=== PATIENT | female | born 1950 | race Caucasian/White ===

== ENCOUNTER 2020-06-12 10:58 | Outpatient (CLI) | payer MEDICARE ==
--- NOTE | 2020-06-12 11:11 | XRAY Report ---
PROCEDURE: Chest 2 View X-Ray INDICATIONS: CHEST WALL PAIN, ACUTE TECHNIQUE: 2 view(s) of the chest. COMPARISON: None. FINDINGS: Surgical changes and devices: Small surgical clips are noted in the anterior chest wall soft tissue/l eft breast suggest clinical correlation.. Lungs and pleura: No pleural effusions or pneumothorax. Lungs are clear. Mediastinum: Mediastinal contours are normal. Heart size is normal. Bones and chest wall: No suspicious bony abnormalities. Soft tissues appear unremarkable. IMPRESSION: No acute cardiopulmonary pathology. Reviewed by: Ace Paz MD on 06/12/2020 11:09 AM PDT Approved by: Ace Paz MD on 06/12/2020 11:09 AM PDT Station ID: [id number]
== END 2020-06-12 10:59 | disposition home or self-care (01) ==
LOC: DI.S 10:58
PROVIDERS: ATTEND Physician Assistant
DX: R07.89 Other chest pain (principal)
CPT/HCPCS: 71046